=== PATIENT | female | born 1960 | race African-American/Black ===

== ENCOUNTER 2019-04-10 21:57 | Inpatient (IN) | payer OTHER ==
[~2019-04-10] VITALS: Ht 170.2 cm; Wt 53.9 kg
[~2019-04-10 21:57] MED LIST: AMLO-147 PO; ASPI-903 PO; ATOR40TA68 PO; CHLO25TA2 PO; CLOP75TA27 PO; CLOT30CR24 TOP; LATA2.5D2 BOTH EYES; LIRA0.6P SQ; LOSA100T15 PO
[2019-04-10 23:15] VITALS: Ht 170.2 cm; Wt 53.9 kg
[2019-04-10 23:16] VITALS: BP 147/70; PULSE 77; RESP 18
[2019-04-11] MEDS ORDERED: BISACODYL (EC) 5 MG TAB PO PRN (00:30)
[2019-04-11] MEDS ORDERED: DEXTROSE 50% 50 ML SYRINGE IV PRN ×2 (00:30)
[2019-04-11] MEDS ORDERED: GLUCOSE GEL 15 GRAM TUBE BUCCAL PRN (00:30)
[2019-04-11] MEDS ORDERED: ACETAMINOPHEN 325 MG TAB PO PRN (00:30)
[2019-04-11] MEDS ORDERED: ONDANSETRON 4 MG INJ IV PRN (00:30)
[2019-04-11] MEDS ORDERED: NACL 0.9% 3 ML SYG IV SCH (00:30)
[2019-04-11] MEDS ORDERED: DOCUSATE SODIUM 100 MG CAP PO PRN (00:30)
[2019-04-11] MEDS ORDERED: GLUCOSE GEL 15 GRAM TUBE PO PRN ×2 (00:30)
[2019-04-11] MEDS ORDERED: GLUCAGON 1 MG INJ IM PRN (00:30)
[2019-04-11 01:30] VITALS: BP 145/68; PULSE 78; RESP 20
[2019-04-11] MEDS: ACCU-CHEK XX SCH ×3 (02:00→21:00)
[2019-04-11] MEDS ORDERED: INSULIN GLARGINE [LANTus] (100 UNITS/ML) SYG SC ONE (02:30)
[2019-04-11] MEDS ORDERED: INSULIN ASPART [NOVOLOG] 3 ML PEN SC ONE (02:30)
[2019-04-11] MEDS ORDERED: ACCU-CHEK XX ONE (04:30)
[2019-04-11] MEDS: INSULIN ASPART [NOVOLOG] 3 ML PEN SC SCH ×4 (07:43→20:41)
[2019-04-11 08:02] VITALS: BP 113/60; PULSE 77; RESP 20
[2019-04-11] MEDS: ASPIRIN (EC) 81 MG TAB PO SCH (10:13)
[2019-04-11] MEDS: CLOPIDOGREL 75 MG TAB PO SCH (10:15)
[2019-04-11] MEDS: CHLORTHALIDONE 25 MG TAB PO SCH (10:15)
[2019-04-11] MEDS: LOSARTAN 50 MG TAB PO SCH (10:16)
[2019-04-11] MEDS: AMLODIPINE 10 MG TAB PO SCH ×2 (10:17→10:21)
[2019-04-11] MEDS: metFORMIN 500 MG TAB PO SCH ×2 (12:29→18:04)
[2019-04-11 14:57] VITALS: BP 123/73; PULSE 79; RESP 20
[2019-04-11 15:32] VITALS: BP 106/60; PULSE 75; RESP 20
[2019-04-11 20:01] VITALS: BP 140/73; PULSE 83; RESP 20
[2019-04-11] MEDS: ATORVASTATIN 80 MG TAB PO SCH (20:34)
[2019-04-11] MEDS: LATANOPROST 0.005% 2.5 ML OPH BOTH EYES SCH (21:00)
[2019-04-12 02:00] VITALS: BP 137/67; PULSE 81; RESP 20
[2019-04-12] MEDS: ACCU-CHEK XX SCH ×5 (02:00→21:55)
[2019-04-12 07:29] VITALS: BP 112/67; PULSE 78; RESP 18
[2019-04-12] MEDS: INSULIN ASPART [NOVOLOG] 3 ML PEN SC SCH ×4 (07:51→20:27)
[2019-04-12] MEDS: ASPIRIN (EC) 81 MG TAB PO SCH (07:53)
[2019-04-12] MEDS: metFORMIN 500 MG TAB PO SCH ×2 (07:53→17:32)
[2019-04-12] MEDS: CLOPIDOGREL 75 MG TAB PO SCH (07:53)
[2019-04-12] MEDS: AMLODIPINE 10 MG TAB PO SCH (07:54)
[2019-04-12] MEDS: LOSARTAN 50 MG TAB PO SCH (07:54)
[2019-04-12] MEDS: CHLORTHALIDONE 25 MG TAB PO SCH (07:55)
[2019-04-12 15:16] VITALS: BP 117/71; PULSE 87; RESP 18
[2019-04-12 20:08] VITALS: BP 135/66; PULSE 85; RESP 18
[2019-04-12] MEDS: ATORVASTATIN 80 MG TAB PO SCH (20:24)
[2019-04-12] MEDS: LATANOPROST 0.005% 2.5 ML OPH BOTH EYES SCH (20:24)
[2019-04-13 01:59] VITALS: BP 114/65; PULSE 84; RESP 16
[2019-04-13] MEDS: ACCU-CHEK XX SCH ×5 (02:03→20:27)
[2019-04-13 08:11] VITALS: BP 119/66; PULSE 81; RESP 20
[2019-04-13] MEDS: CLOPIDOGREL 75 MG TAB PO SCH (08:25)
[2019-04-13] MEDS: LOSARTAN 50 MG TAB PO SCH (08:26)
[2019-04-13] MEDS: AMLODIPINE 10 MG TAB PO SCH (08:26)
[2019-04-13] MEDS: ASPIRIN (EC) 81 MG TAB PO SCH (08:26)
[2019-04-13] MEDS: metFORMIN 500 MG TAB PO SCH ×2 (08:26→17:30)
[2019-04-13] MEDS: CHLORTHALIDONE 25 MG TAB PO SCH (08:26)
[2019-04-13] MEDS: INSULIN ASPART [NOVOLOG] 3 ML PEN SC SCH ×4 (08:29→20:20)
[2019-04-13] MEDS ORDERED: POTASSIUM CHLORIDE (SR) 20 MEQ TAB PO STA (13:13)
[2019-04-13 14:22] VITALS: BP 132/62; PULSE 76; RESP 18
[2019-04-13] MEDS ORDERED: INSULIN GLARGINE [LANTus] (100 UNITS/ML) SYG SC SCH (20:00)
[2019-04-13] MEDS: ATORVASTATIN 80 MG TAB PO SCH (20:17)
[2019-04-13 20:18] VITALS: BP 117/64; PULSE 85; RESP 18
[2019-04-13] MEDS: LATANOPROST 0.005% 2.5 ML OPH BOTH EYES SCH (20:24)
== END 2019-04-13 21:50 | DRG 638 ==
LOC: MS1 22:43
PROVIDERS: ADMIT Internal Medicine; ATTEND Hospitalist
DX: E11.65 Type 2 diabetes mellitus with hyperglycemia (principal); I69.351 Hemiplegia and hemiparesis following cerebral infarction affecting right dominant side; I69.320 Aphasia following cerebral infarction; I10 Essential (primary) hypertension; E78.5 Hyperlipidemia, unspecified; K21.9 Gastro-esophageal reflux disease without esophagitis; I69.392 Facial weakness following cerebral infarction; Z74.01 Bed confinement status
CPT/HCPCS: 80048; 80061; 80076; 82962; 83036; 84443; 85025; 92523; 92610; 97110; 97116; 97162; 97167; 97530; J1815